=== PATIENT | male | born 2000 | race Caucasian/White ===

== ENCOUNTER 2023-04-23 12:31 | Inpatient (IN) ==
[2023-04-23 13:05] LABS: Hemoglobin 14.8 g/dl (14.0-18.0); Mean Corpuscular Hemoglobin 31.1 pg (25.0-34.0); Mean Corpuscular Hgb Conc 35.2 g/dL (32.0-36.0); Mean Corpuscular Volume 88.2 fL (80.0-100.0); Mean Platelet Volume 10.6 fL (9.4-12.4); Platelet Count 142 K/uL (130-400); RDW Coefficient of Variation 12.8 % (11.5-14.5); RDW Standard Deviation 41.3 fL (36.4-46.3); Red Blood Count 4.76 M/uL (4.70-6.10)
--- NOTE | 2023-04-23 13:09 | XRay Report ---
XR chest 1V not portable HISTORY: 22 years-old Male Chest pain, nonspecific COMPARISON: None TECHNIQUE: PA view of the chest FINDINGS: Cardiomediastinal and hilar silhouettes are within normal limits. No pneumothorax, pleural effusion o r airspace consolidation. The bones appear normal. IMPRESSION: No acute process. ACT 112: Negative or not required by law. The above report was generated using voice recognition software. It may contain grammatical, syntax o r spelling errors. Electronically signed by: Scot Loo M.D. 04/23/2023 1:07 PM
[2023-04-23 13:19] LABS: Albumin Globulin Ratio 1.6 (0.9-2); Albumin Level 4.5 gm/dl (3.4-5.0); Bilirubin,Total 1.3 mg/dl (0.2-1.0); Calcium 9.8 mg/dl (8.6-10.3); Creatinine Clr Calc Pharmacy 135.2 ml/min; Est GFR (African American) 115.2 ml/min; Est GFR (Non-African American) 99.4 ml/min; Globulin 2.8 gm/dl (2.5-4.0); Potassium 4.6 mmol/L (3.5-5.1); Total Protein 7.3 gm/dl (6.0-8.3)
[2023-04-23 13:21] LABS: Basophils # (auto) 0.03 K/uL (0.00-0.20); Basophils % (auto) 0.5 %; Eosinophils # (auto) 0.02 K/uL (0.00-0.50); Eosinophils % (auto) 0.3 %; Immature Granulocytes # (auto) 0.02 K/uL (0.01-0.20); Immature Granulocytes % (auto) 0.3 %; Lymphocytes # (auto) 1.06 K/uL (1.20-3.40); Lymphocytes % (auto) 17.4 %; Monocytes # (auto) 0.75 K/uL (0.11-0.59); Monocytes % (auto) 12.3 %; Neutrophils # (auto) 4.22 K/uL (1.40-6.50); Neutrophils % (auto) 69.2 %; RBC Morphology Unremarkable
[2023-04-23] MEDS ORDERED: ASPIRIN CHEW 324 MG PO STA (13:38)
[2023-04-23 13:42] LABS: D Dimer < 190 ug/L FEU (0-500); INR 1.1 (0.9-1.1); Partial Thromboplastin Ratio 1.1; Partial Thromboplastin Time 30.3 Seconds (21.0-31.0); Prothrombin Time 12.2 Seconds (9.0-12.0)
--- NOTE | 2023-04-23 13:44 | Emergency Department Note ---
Impression & Plan Chest pain, Non-ST elevation NC (NSTEMI), Myocarditis ED Provider Note HISTORY OF PRESENT ILLNESS: Patient is a 22-year-old male presenting with chest pain. Patient reports he awoke this morning with substernal chest pain. Describes it as a pressure and constant sensation. Denies any shortness of breath. Denies any nausea or vomiting. Denies any recent fevers or cough. Denies any DVT or PE history. He is not on any medications daily. Denies any family history of heart disease. He went to urgent care for his chest pain and had an EKG done which he states that they compared to an EKG in June 2022 and there were "a lot of changes so they sent me here." He is still complaining of some chest pain at this time, but reports is improved from earlier today ROS: as above PHYSICAL EXAM: Constitutional: Patient appears in no acute distress. HENT: Head: Normocephalic and atraumatic. Eyes: EOMI, PERRL Mouth/Throat: Mucous membranes moist. Neck: Trachea midline. Neck supple. Cardiovascular: RRR, No murmurs, rubs or gallops. Intact distal pulses. Pulmonary/Chest: No respiratory distress. Breath sounds clear and equal bilaterally. No wheezes or rales. Abdominal: Abdomen soft, no tenderness, rebound or guarding. Musculoskeletal: No edema, tenderness or deformity noted. Skin: Warm and dry. No rash, erythema, pallor or cyanosis Psychiatric: Appropriate mood and affect for situation. Neurological: Alert and keenly responsive. CN II-XII grossly intact, moving all extremities equally and fully. MDM: - Vitals signs showed hypertension - History obtained via patient. Patient presents with chest pain. Patient reports he woke up this morning with substernal chest pain. Describes it as a continuous pressure sensation. Denies any shortness of breath. Denies any nausea, vomiting or fevers. Denies any DVT or PE history. He is not on any medications daily. Denies any family history of heart disease. He went to urgent care today for chest pain and had an EKG done which seemed abnormal from his previous so they sent him to the ER. Patient still complaining of some mild substernal chest pain, but reports is improved from earlier today. - Chronic conditions affecting care: none - Differential diagnoses include, but are not limited to: Acute coronary s yndrome; pulmonary embolism; dissection; tension pneumothorax; esophageal rupture; pneumonia - Order placed for continuous cardiac monitoring. At this time, monitor showed rate of 87 bpm with normal sinus rhythm, per my interpretation. - External medical records reviewed. - EKG reviewed by myself showed [] - Laboratory workup interpreted by myself showed normal WBC; stable electrolytes; elevated troponin (7017.2) - CXR negative for pneumonia. - Considered CT PE, but patient's dimer is WNL. - Patient given 324 mg Po aspirin and 30 mg IV toradol. - Given patient's symptoms and troponin elevation, concern for possible myocarditis vs pericarditis. - Discussed case with [facility] stain maker assistant plant control operator, Dr. Merlos. Recommended ECHO and toradol. - Discussion was had with social media strategist about patient's case and need for admission - Hospitalist consulted for admission - Patient admitted to [facility] Hospitalist service for further evaluation and management. ASSESSMENT AND PLAN: Diagnosis: chest pain; NSTEMI; myocarditis Plan: admit Past Med/Surg History Social History Smoking Status: Never smoker Tobacco Type: Cigarettes Preferred Language: Bengali Feels Safe at Home: Yes Allergies Allergies Allergy/AdvReac Type Severity Reaction Status Date / Time No Known Allergies Allergy Verified 10/22/22 01:27 Home Meds Home Medications Medication Instructions Recorded Confirmed No Known Home Medications 10/22/22 04/23/23 Results & Data (ED) Vital Signs Vital Signs - 24 hr 04/23/23 12:37 04/23/23 12:41 04/23/23 12:41 Temperature 36.5 C Temperature Source Temporal Artery Scan Pulse Rate 82 Pulse Rate [Apical] 87 Pulse Rate from SpO2 Sensor Respiratory Rate 20 16 Respiratory Effort / Characteristics Non-Labored Respiratory Depth Normal Blood Pressure 147/100 H Blood Pressure [Right Arm] 147/93 H Blood Pressure Mean 115 Blood Pressure Mean [Right Arm] 111 Pulse Oximetry 98 97 98 Oxygen Delivery Method Room Air Sepsis Recent Fever Within 48 Hours No Sepsis New/Unexplained Change in Mental Status N/A Sepsis Action Taken by Nursing No Action Required 04/23/23 13:40 04/23/23 13:50 04/23/23 13:55 Temperature Temperature Source Pulse Rate 87 99 H Pulse Rate [Apical] Pulse Rate from SpO2 Sensor 83 102 H Respiratory Rate 22 17 Respiratory Effort / Characteristics Respiratory Depth Blood Pressure 155/82 H Blood Pressure [Right Arm] Blood Pressure Mean 134 Blood Pressure Mean [Right Arm] Pulse Oximetry 99 99 Oxygen Delivery Method Sepsis Recent Fever Within 48 Hours Sepsis New/Unexplained Change in Mental Status Sepsis Action Taken by Nursing 04/23/23 13:55 04/23/23 14:00 04/23/23 14:00 Temperature Temperature Source Pulse Rate 92 H 95 H Pulse Rate [Apical] Pulse Rate from SpO2 Sensor 87 90 Respiratory Rate 17 22 Respiratory Effort / Characteristics Respiratory Depth Blood Pressure 138/68 Blood Pressure [Right Arm] Blood Pressure Mean 96 Blood Pressure Mean [Right Arm] Pulse Oximetry 98 98 Oxygen Delivery Method Sepsis Recent Fever Within 48 Hours Sepsis New/Unexplained Change in Mental Status Sepsis Action Taken by Nursing 04/23/23 14:10 04/23/23 14:20 04/23/23 14:27 Temperature Temperature Source Pulse Rate 98 H 84 87 Pulse Rate [Apical] Pulse Rate from SpO2 Sensor 98 H 84 Respiratory Rate 20 23 Respiratory Effort / Characteristics Respiratory Depth Blood Pressure Blood Pressure [Right Arm] Blood Pressure Mean Blood Pressure Mean [Right Arm] Pulse Oximetry 100 98 Oxygen Delivery Method Sepsis Recent Fever Within 48 Hours Sepsis New/Unexplained Change in Mental Status Sepsis Action Taken by Nursing 04/23/23 14:30 04/23/23 14:30 Temperature Temperature Source Pulse Rate 90 Pulse Rate [Apical] Pulse Rate from SpO2 Sensor 85 Respiratory Rate 24 Respiratory Effort / Characteristics Respiratory Depth Blood Pressure 144/72 H Blood Pressure [Right Arm] Blood Pressure Mean 88 Blood Pressure Mean [Right Arm] Pulse Oximetry 99 Oxygen Delivery Method Sepsis Recent Fever Within 48 Hours Sepsis New/Unexplained Change in Mental Status Sepsis Action Taken by Nursing Laboratory Data 04/23/23 12:46 04/23/23 12:46 Lab Results 04/23/23 04/23/23 04/23/23 Range/Units 12:46 12:46 12:46 WBC 6.10 (4.8-10.8) K/ul RBC 4.76 (4.70-6.10) M/uL Hgb 14.8 (14.0-18.0) g/dl Hct 42.0 (42.0-52.0) % MCV 88.2 (80.0-100.0) fL MCH 31.1 (25.0-34.0) pg MCHC 35.2 (32.0-36.0) g/dL RDW Std Deviation 41.3 (36.4-46.3) fL RDW Coeff of Padmini 12.8 (11.5-14.5) % Plt Count 142 (130-400) K/uL MPV 10.6 (9.4-12.4) fL Immature Gran % (Auto) 0.3 % Neut % (Auto) 69.2 % Lymph % (Auto) 17.4 % [place] % (Auto) 12.3 % Eos % (Auto) 0.3 % Baso % (Auto) 0.5 % Neut # (Auto) 4.22 (1.40-6.50) K/uL Lymph # (Auto) 1.06 L (1.20-3.40) K/uL [place] # (Auto) 0.75 H (0.11-0.59) K/uL Eos # (Auto) 0.02 (0.00-0.50) K/uL Baso # (Auto) 0.03 (0.00-0.20) K/uL Immature Gran # (Auto) 0.02 (0.01-0.20) K/uL RBC Morphology Unremarkable PT 12.2 H (9.0-12.0) Seconds INR 1.1 (0.9-1.1) APTT 30.3 (21.0-31.0) Seconds PTT Ratio 1.1 D-Dimer < 190 (0-500) ug/L FEU Sodium 137 (136-145) mmol/L Potassium 4.6 (3.5-5.1) mmol/L Chloride 106 (98-107) mmol/L Carbon Dioxide 25 (21-32) mmol/L Anion Gap 6 (3-11) BUN 15 (6-23) mg/dl Creatinine 1.07 (0.6-1.4) mg/dl Est Cr Clr Drug Dosing 135.2 ml/min Est GFR ( Amer) 115.2 ml/min Est GFR (Non-Af Amer) 99.4 ml/min BUN/Creatinine Ratio 14.0 (10-20) Glucose 99 (70-99(Fasting)) mg/dl Calcium 9.8 (8.6-10.3) mg/dl Total Bilirubin 1.3 H (0.2-1.0) mg/dl AST 53 H (13-39) U/L ALT 25 (7-52) U/L Alkaline Phosphatase 47 (34-104) U/L Troponin I High Sens 7017.2 H* (0-20) pg/ml B-Natriuretic Peptide (0-100) pg/ml Total Protein 7.3 (6.0-8.3) gm/dl Albumin 4.5 (3.4-5.0) gm/dl Globulin 2.8 (2.5-4.0) gm/dl Albumin/Globulin Ratio 1.6 (0.9-2) Lyme Disease IgG Ab (Negative) Lyme Disease IgM Ab (Negative) 04/23/23 04/23/23 Range/Units 12:50 14:30 WBC (4.8-10.8) K/ul RBC (4.70-6.10) M/uL Hgb (14.0-18.0) g/dl Hct (42.0-52.0) % MCV (80.0-100.0) fL MCH (25.0-34.0) pg MCHC (32.0-36.0) g/dL RDW Std Deviation (36.4-46.3) fL RDW Coeff of Padmini (11.5-14.5) % Plt Count (130-400) K/uL MPV (9.4-12.4) fL Immature Gran % (Auto) % Neut % (Auto) % Lymph % (Auto) % [place] % (Auto) % Eos % (Auto) % Baso % (Auto) % Neut # (Auto) (1.40-6.50) K/uL Lymph # (Auto) (1.20-3.40) K/uL [place] # (Auto) (0.11-0.59) K/uL Eos # (Auto) (0.00-0.50) K/uL Baso # (Auto) (0.00-0.20) K/uL Immature Gran # (Auto) (0.01-0.20) K/uL RBC Morphology PT (9.0-12.0) Seconds INR (0.9-1.1) APTT (21.0-31.0) Seconds PTT Ratio D-Dimer (0-500) ug/L FEU Sodium (136-145) mmol/L Potassium (3.5-5.1) mmol/L Chloride (98-107) mmol/L Carbon Dioxide (21-32) mmol/L Anion Gap (3-11) BUN (6-23) mg/dl Creatinine (0.6-1.4) mg/dl Est Cr Clr Drug Dosing ml/min Est GFR ( Amer) ml/min Est GFR (Non-Af Amer) ml/min BUN/Creatinine Ratio (10-20) Glucose (70-99(Fasting)) mg/dl Calcium (8.6-10.3) mg/dl Total Bilirubin (0.2-1.0) mg/dl AST (13-39) U/L ALT (7-52) U/L Alkaline Phosphatase (34-104) U/L Troponin I High Sens (0-20) pg/ml B-Natriuretic Peptide 50 (0-100) pg/ml Total Protein (6.0-8.3) gm/dl Albumin (3.4-5.0) gm/dl Globulin (2.5-4.0) gm/dl Albumin/Globulin Ratio (0.9-2) Lyme Disease IgG Ab Negative (Negative) Lyme Disease IgM Ab Negative (Negative) Administered Medications Discontinued Medications Aspirin (Aspirin Chew 324 Mg) 324 mg PO NOW STA Stop: 04/23/23 13:39 Last Admin: 04/23/23 13:53 Dose: 324 mg Documented By: ACC Ketorolac Tromethamine (Ketorolac 30 Mg/Ml Vial) 30 mg IV NOW ONE Stop: 04/23/23 14:26 Last Admin: 04/23/23 14:34 Dose: 30 mg Documented By: ACC Imaging Data Radiologist's Impression: Chest X-Ray 04/23/23 12:41 XR chest 1V not portable HISTORY: 22 years-old Male Chest pain, nonspecific COMPARISON: None TECHNIQUE: PA view of the chest FINDINGS: Cardiomediastinal and hilar silhouettes are within normal limits. No pneumothorax, pleural effusion or airspace consolidation. The bones appear normal. IMPRESSION: No acute process. ACT 112: Negative or not required by law. The above report was generated using voice recognition software. It may contain grammatical, syntax or spelling errors. Electronically signed by: Scot Loo M.D. 04/23/2023 1:07 PM Discharge Plan Visit Data Chief Complaint: Abnormal Labs/Diagnostic Testing Stated Complaint: CHEST PAIN,ABNORMAL EKG, REFERRED FROM URGENT CARE ED Provider: Jossy Godinez Discharge Problem: Chest pain, Non-ST elevation NC (NSTEMI), Myocarditis Forms Stand Alone Forms: Prosodic Prescriptions Prescriptions: No Action No Known Home Medications Referrals Referrals: [facility] [Primary Care Provider] -
[2023-04-23] MEDS ORDERED: KETOROLAC 30 MG/ML VIAL IV ONE (14:25)
[2023-04-23 14:44] LABS: Lyme Ab IgG w/WB Rflx Negative (Negative); Lyme Ab IgM w/WB Rflx Negative (Negative)
--- NOTE | 2023-04-23 14:50 | History & Physical Report ---
Date of Service April 23, 2023 Assessment & Plan (1) Chest pain: Plan: Substernal CP w/o radiation and mild SOB x2 days Started 04/21 Patient got EKG done at on Monday 04/23 and was told to come in; "early repolarization" changes seen on EKG when compared to EKG done June 2022; EKGs attached to paper chart Patient had similar symptoms back in Jun 2022 EKG on arrival showed NSR ASA & Toradol were given in the ED Troponin positive x2 (7017.2 --> 8387.3) Trend troponin q6h x 3 CXR NAF D-dimer WNL BNP WNL at 50 Lyme negative BioFire negative Stat TTE ordered, pending Continous telemonitoring EKG as need for chest pain Appreciate cardio consult Depending on echo results, will place patient on colchicine 0.6 mg twice daily Nitroglycerin 0.4 mg SL as needed for intractable angina (max 3 doses q5min over 15min) A.m. CBC, BMP, Mag Plan Disposition: Admit to 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 He presents for intermittent chest pain since 04/21. He had an EKG done at [facility] urgent care this morning 04/23, and was instructed to go to the ED based on changes when compared to an EKG done in June 2022. Patient was having similar chest pain symptoms in June 2022. Patient is not taking daily medications. Substernal CP without radiation; patient has not been taking medication for it. He reports that anxiety exacerbates the pain. He says it is not alleviated by different positions, such as sitting forward. He describes it as intermittent "chest pressure" that can last for several hours at a time. He also endorses mild pleuritic CP and SOB. Patient normally exercises 4-5x per week; weight lifting. He endorses periodic alcohol consumption. No recent vomiting. No history of GERD per patient. Patient denies smoking, vaping, tobacco use, or recreational drug use. No sick contacts. No PMHx of MT, DVT/PE, HLD, or diabetes. He was once told by PCP that he had high blood pressure. Mild hypertension at 144/72 on admission; vitals otherwise stable. ED course: Aspirin 324 mg, Toradol 30 mg IV ROS: Patient endorses intermittent substernal CP, pleuritic CP, mild SOB at rest, and sweating. Patient denies fevers, chills, CHAMBERS, dizziness, lightheadedness, cough, hemo ptysis, SOB, CP radiating to the back, back/scapular pain, abdominal pain, N/V/D, urinary symptoms, burning with urination, numbness/pain in the left arm or shoulder, or numbness or tingling down the legs. Fam hx: No family history of sudden cardiac , MT, or DVT/PE to his knowledge Allergies Allergy/AdvReac Type Severity Reaction Status Date / Time No Known Allergies Allergy Verified 10/22/22 01:27 Home Medications Medication Instructions Recorded Confirmed Type No Known Home Medications 10/22/22 04/23/23 History Past Med/Surg History Social History Smoking Status: Never smoker Tobacco Type: Cigarettes Preferred Language: Turkmen Feels Safe at Home: Yes Review of Systems Review of Systems: See HPI above Physical Exam Physical Exam: General: no acute distress; patient appears mildly anxious; diaphoretic; non- toxic appearing; well-nourished; cooperative HEENT: normocephalic, atraumatic; no scleral icterus; PERRLA w/ EOMs intact; moist mucus membrane; vision and hearing grossly intact Neck: supple; no lymphadenopathy; trachea midline Skin: warm, moist without signs of tenting; no cyanosis; no rashes, brusing, lesions, or erythema noted CV: chest wall NTP; RRR; S1/S2 normal; no murmurs/rubs/gallops; pulses intact and symmetric at radial, DP, and PT Lungs: no acute respiratory distress; symmetrical chest wall expansion; clear breath sounds across all lung moss w/o adventitious sounds; no wheezing ABD: Soft, NTP; BS present; no distention; negative CVA tenderness MSK: no tics or fasciculations; no edema noted in the LEs b/l Neuro: A&Ox3; normal mood and affect; fluent speech; no focal deficits; sensation grossly intact Results & Data Results & Data Vital Signs (Past 12 Hours) Vital Signs Temp Pulse Pulse Resp BP BP Pulse Ox 04/23/23 14:30 90 24 99 04/23/23 14:30 144/72 H 04/23/23 14:27 87 04/23/23 14:20 84 23 98 04/23/23 14:10 98 H 20 100 04/23/23 14:00 95 H 22 98 04/23/23 14:00 138/68 04/23/23 13:55 92 H 17 98 04/23/23 13:55 155/82 H 04/23/23 13:50 99 H 17 99 04/23/23 13:40 87 22 99 04/23/23 12:41 98 04/23/23 12:41 87 16 147/93 H 97 04/23/23 12:37 36.5 C 82 20 147/100 H 98 O2 Del Method 04/23/23 14:30 04/23/23 14:30 04/23/23 14:27 04/23/23 14:20 04/23/23 14:10 04/23/23 14:00 04/23/23 14:00 04/23/23 13:55 04/23/23 13:55 04/23/23 13:50 04/23/23 13:40 04/23/23 12:41 Room Air 04/23/23 12:41 04/23/23 12:37 Laboratory Results Abnormal lab results 04/23/23 04/23/23 04/23/23 Range/Units 12:46 12:46 12:46 Lymph # (Auto) 1.06 L (1.20-3.40) K/uL [place] # (Auto) 0.75 H (0.11-0.59) K/uL PT 12.2 H (9.0-12.0) Seconds Total Bilirubin 1.3 H (0.2-1.0) mg/dl AST 53 H (13-39) U/L Troponin I High Sens 7017.2 H* (0-20) pg/ml Diagnostic Findings Chest X-Ray 04/23/23 12:41 XR chest 1V not portable HISTORY: 22 years-old Male Chest pain, nonspecific COMPARISON: None TECHNIQUE: PA view of the chest FINDINGS: Cardiomediastinal and hilar silhouettes are within normal limits. No pneumothorax, pleural effusion or airspace consolidation. The bones appear normal. IMPRESSION: No acute process. ACT 112: Negative or not required by law. The above report was generated using voice recognition software. It may contain grammatical, syntax or spelling errors. Electronically signed by: Scot Loo M.D. 04/23/2023 1:07 PM Code Status & VTE Plan Code Status Full code VTE Prophylaxis Plan VTE Prophylaxis will be ordered: Yes Supervising Physician Co-Signing Physician Notes Patient seen and examined, chart reviewed, case discussed with Avi Humphries PA-C and I agree with the assessment and plan as above except as otherwise noted Labs and images reviewed Substernal CP and SOB x2-3 days. Similar symptoms in 2022. EKG initially consistent with early repolarization. Troponin uptrending 7000 --> 8k in ER. CXR wnl, DD normal, BNP wnl. ?myocarditis. Lyme negative. Cardiology consulted. Case was reviewed w/ Dr. Merlos. toradol 10mg q6h for pain. Trend trops, echo pending. At bedside patient reports his pain is greatly improved and nearly completely resolved following Toradol. He notes that his symptoms began 2 days ago, he reports he did go out drinking last night and had ~6 beers but his chest pain onset preceded this by about a day and he does not think the beers affected his pain. He has not had fever, chills, sweats. Denies rashes/tick bites. Denies cough. Denies pain between his shoulder blades he reports his pain has mostly been in the right side of his chest, her a little more with deep breathing and he notes that sitting slightly up causes his pain to be worse but either flexing his shoulders forward or sitting very far forward does seem to help improve his pain. He feels 90% improved at time of hospitalist evaluation. Lungs are clear on auscultation, heart rate is regular without murmurs or gallops. do not feel this represents ACS, suspect mycarditis/pericarditis. Heparinization not indicated. If toradol/tylenol as needed for pain control. Echo pending, if wall motion is normal will add colchicine 0.5 mg twice daily. Agree with assessment and work-up above. PG Care Time/CCT Total # of Minutes Spent Total Time Spent with Patient: Total time spent is greater than 50% in coordination of care (as documented) at patient's floor/unit and/or counseling patient: [place] [address] INT INP/OBS CARE MIN Patient Type Established History Comprehensive Exam Comprehensive Medical Decision Making High Complexity Diagnoses Chest pain R07.9
[2023-04-23 15:31] LABS: Adenovirus PCR Not Detected (NotDetected); Bordetella parapertussis PCR Not Detected (NotDetected); Bordetella pertussis PCR Not Detected (NotDetected); Chlamydia pneumoniae PCR Not Detected (NotDetected); Coronavirus 229E PCR Not Detected (NotDetected); Coronavirus CoV-2 (COVID19)PCR Not Detected (NotDetected); Coronavirus HKU1 PCR Not Detected (NotDetected); Coronavirus NL63 PCR Not Detected (NotDetected); Coronavirus OC43PCR Not Detected (NotDetected); Human Metapneumovirus PCR Not Detected (NotDetected); Influenza A PCR Not Detected (NotDetected); Influenza B PCR Not Detected (NotDetected); Mycoplasma pneumoniae PCR Not Detected (NotDetected); Parainfluenza Virus 1 PCR Not Detected (NotDetected); Parainfluenza Virus 2 PCR Not Detected (NotDetected); Parainfluenza Virus 3 PCR Not Detected (NotDetected); Parainfluenza Virus 4 PCR Not Detected (NotDetected); Respiratory Syncytial VirusPCR Not Detected (NotDetected); Rhinovirus/Enterovirus PCR Not Detected (NotDetected)
--- NOTE | 2023-04-23 17:08 | XCELERA ---
[id number]
[2023-04-23 18:20] LABS: Magnesium 1.9 mg/dl (1.7-2.4)
[2023-04-23] MEDS ORDERED: ACETAMINOPHEN 325 MG TAB PO PRN (19:14)
[2023-04-23] MEDS ORDERED: ENOXAPARIN INJ 40 MG/0.4 ML SYR SQ SCH (20:00)
[2023-04-23] MEDS: COLCHICINE 0.6 MG TAB PO SCH ×2 (20:39→22:02)
[2023-04-23] MEDS ORDERED: IBUPROFEN 600 MG TAB PO ONE (20:45)
[2023-04-23] MEDS: NITROGLYCERIN SL 0.4 MG/TAB TAB SL PRN ×2 (22:36→22:57)
[2023-04-23] MEDS ORDERED: MELATONIN 3 MG TAB PO STA (23:01)
[2023-04-24 06:34] LABS: Hematocrit (blood only) 42.6 % (42.0-52.0); Hemoglobin 14.7 g/dl (14.0-18.0); Mean Corpuscular Hemoglobin 30.6 pg (25.0-34.0); Mean Corpuscular Hgb Conc 34.5 g/dL (32.0-36.0); Mean Corpuscular Volume 88.6 fL (80.0-100.0); Mean Platelet Volume 10.7 fL (9.4-12.4); Platelet Count 143 K/uL (130-400); RDW Coefficient of Variation 12.9 % (11.5-14.5); RDW Standard Deviation 41.6 fL (36.4-46.3); Red Blood Count 4.81 M/uL (4.70-6.10); White Blood Count 5.85 K/ul (4.8-10.8)
[2023-04-24 07:00] LABS: Calcium 9.5 mg/dl (8.6-10.3); Est GFR (Non-African American) 107.9 ml/min; Potassium 4.3 mmol/L (3.5-5.1)
[2023-04-24 07:18] LABS: Basophils # (auto) 0.06 K/uL (0.00-0.20); Eosinophils # (auto) 0.08 K/uL (0.00-0.50); Eosinophils % (auto) 1.4 %; Immature Granulocytes # (auto) 0.02 K/uL (0.01-0.20); Immature Granulocytes % (auto) 0.3 %; Lymphocytes # (auto) 1.81 K/uL (1.20-3.40); Lymphocytes % (auto) 30.9 %; Monocytes # (auto) 0.78 K/uL (0.11-0.59); Monocytes % (auto) 13.3 %; Neutrophils % (auto) 53.1 %
--- NOTE | 2023-04-24 08:16 | Hospitalist Progress Note ---
Date of Service April 24, 2023 Assessment & Plan (1) Chest pain: Plan: acute symptomatic myocarditis, normal echo started on colchicine, symptom improvement EKG on arrival showed NSR ASA & Toradol were given in the ED Troponin positive up to 10,000 Echo without RWMA D-dimer WNL, Lyme negative, BioFire negative Plan Full code VTE PPx: Lovenox Admission and Anticipated Discharge Date Admission Date: April 23, 2023 Results & Data Results & Data Vital Signs (Past 12 Hours) Vital Signs Temp Pulse Pulse Resp BP Pulse Ox O2 Del Method 04/24/23 07:21 67 04/24/23 06:57 97.9 F 83 20 118/80 97 Room Air 04/24/23 03:13 98.1 F 83 20 128/84 96 Room Air 04/23/23 22:30 90 04/23/23 23:00 Room Air 04/23/23 23:00 98.6 F 83 18 148/93 H 100 Room Air 04/23/23 22:55 72 147/97 H 99 Room Air 04/23/23 22:34 98.6 F 83 18 148/93 H 100 Room Air PG Care Time/CCT Total # of Minutes Spent Total Time Spent with Patient: Total time spent is greater than 50% in coordination of care (as documented) at patient's floor/unit and/or counseling patient: Coding Diagnoses Chest pain R07.9
[2023-04-24] MEDS: COLCHICINE 0.6 MG TAB PO SCH (08:18)
--- NOTE | 2023-04-24 11:18 | Cardiology Consultation ---
Date of Consultation April 24, 2023 Assessment & Plan (1) Myopericarditis: Plan 1. Mild pericarditis: He has significantly elevated biomarkers without evidence of LV dysfunction or regional wall motion abnormalities. EKG is also consistent with a pericarditis in some features of his illness are consistent with pericardial inflammation such as the pleuritic component. He is not in a demographic likely to have an acute coronary syndrome. No recent vaccinations or obvious viral illnesses. Viral panel including COVID-19 were negative. I think we will proceed us if this represents a typical mild pericarditis with nonsteroidal medications and colchicine. Provided he is symptom free and the biomarkers are trending down words he could be safely discharged with an activity restriction and continued medical therapy. We will repeat an echocardiogram in approximately 2 weeks to re-evaluate LV function. History of Present Illness Reason for Consultation: Chest pain Requesting Physician: Gretchen Attending Physician: Adrien Shankar MD History of Present Illness The patient is a 22-year-old gentleman without a known history of cardiac disease who presented to an urgent care for symptoms of chest discomfort. The patient states that approximately 2 days prior to presentation he began to experience symptoms of substernal chest discomfort. This was initially mild in intensity and did resolve over time, but was intermittently recurrent over the subsequent 2 days. The day of evaluation the symptoms were persistent and somewhat more significant. He did report a pleuritic component with the discomfort. There did not appear to be a positional component. Did not appear to be worse with any specific activity and was present even at rest. The episodes themselves could last several hours. He recalls having had similar symptoms several months ago for which he was evaluated at urgent care. Those symptoms resolved without any particular intervention. In general he is an active individual who exercises by lifting weights. He is ambulatory and can perform other physical activity without symptom in general. He denies any sick contacts or recent upper respiratory symptoms. No recent fevers or chills. No joint pains or unusual rashes. No recent vaccinations. No breathing difficulty. At the time of the interview the patient was feeling well. He did report having some recurrent chest discomfort last evening, but this resolved and has not come back. He has been ambulatory to the bathroom without dizziness or chest pain. No breathing difficulty orthopnea. Allergies Allergy/AdvReac Type Severity Reaction Status Date / Time No Known Allergies Allergy Verified 10/22/22 01:27 Home Medications Medication Instructions Recorded Confirmed Type No Known Home Medications 10/22/22 04/23/23 History Patient History Social History Smoking Status: Never smoker Tobacco Type: Cigarettes Second Hand Exposure: No; Do You Dip or Chew Tobacco: No; Hx Alcohol Use: Yes Alcohol type: beer Hx Substance Use: No Preferred Language: British Communication Ability: Effective [place] Required: No Beliefs That Will Affect Care: None Current Living Situation: Other Current Living Situation Comment: [employer] student. lives off campus Feels Safe at Home: Yes Assistive Devices: None Review of Systems Review of Systems: Per HPI. Physical Exam Physical Exam: The patient is alert and oriented. Mood and affect appeared normal. He answered all questions appropriately. HEENT: Pupils are equal and reactive to light and accommodation. Extraocular movements are intact. The sclerae are anicteric. Neuro: Cranial nerves intact Lungs: Clear to auscultation bilaterally. He has good air movement without use of accessory muscles. No rales wheezes or rhonchi. Cardiac: Heart demonstrates a regular rate and rhythm. Normal S1 and S2. No murmurs on examination. Pulses: The patient has palpable radial pulses bilaterally that are equal in intensity Extremities: There was no evidence of hypoperfusion. There is no cyanosis or clubbing. There is no edema. Skin: I did not appreciate any rashes on examination today. Results & Data Vital Signs (Past 12 Hours) Vital Signs Temp Pulse Pulse Resp BP Pulse Ox O2 Del Method 04/24/23 11:00 36.4 C L 85 20 127/80 98 Room Air 04/24/23 07:21 67 04/24/23 06:57 36.6 C 83 20 118/80 97 Room Air 04/24/23 03:13 36.7 C 83 20 128/84 96 Room Air Laboratory Results Abnormal Lab Results 04/23/23 04/23/23 04/23/23 12:46 12:46 12:46 WBC 6.10 RBC 4.76 Hgb 14.8 Hct 42.0 MCV 88.2 MCH 31.1 MCHC 35.2 RDW Std Deviation 41.3 RDW Coeff of Padmini 12.8 Plt Count 142 MPV 10.6 Immature Gran % (Auto) 0.3 Neut % (Auto) 69.2 Lymph % (Auto) 17.4 [place] % (Auto) 12.3 Eos % (Auto) 0.3 Baso % (Auto) 0.5 Neut # (Auto) 4.22 Lymph # (Auto) 1.06 L [place] # (Auto) 0.75 H Eos # (Auto) 0.02 Baso # (Auto) 0.03 Immature Gran # (Auto) 0.02 RBC Morphology Unremarkable PT 12.2 H INR 1.1 APTT 30.3 PTT Ratio 1.1 D-Dimer < 190 Sodium 137 Potassium 4.6 Chloride 106 Carbon Dioxide 25 Anion Gap 6 BUN 15 Creatinine 1.07 Est Cr Clr Drug Dosing 135.2 Est GFR ( Amer) 115.2 Est GFR (Non-Af Amer) 99.4 BUN/Creatinine Ratio 14.0 Glucose 99 Calcium 9.8 Magnesium Total Bilirubin 1.3 H AST 53 H ALT 25 Alkaline Phosphatase 47 Troponin I High Sens 7017.2 H* B-Natriuretic Peptide Total Protein 7.3 Albumin 4.5 Globulin 2.8 Albumin/Globulin Ratio 1.6 Adenovirus (PCR) B. pertussis DNA (PCR) B.parapertussis DNA PCR Lyme Disease IgG Ab Lyme Disease IgM Ab C. pneumoniae DNA (PCR) Coronavirus OC43 (PCR) Coronavirus HKU1 (PCR) Coronavirus 229E (PCR) SARS-CoV-2 (PCR) Coronavirus NL63 (PCR) Human Metapneumovir PCR Influenza Type A (PCR) Influenza Type B (PCR) M. pneumoniae (PCR) Parainfluenza 1 (PCR) Parainfluenza 2 (PCR) Parainfluenza 3 (PCR) Parainfluenza 4 (PCR) RSV (PCR) Entero/Rhino (PCR) 04/23/23 04/23/23 04/23/23 12:50 14:30 14:30 WBC RBC Hgb Hct MCV MCH MCHC RDW Std Deviation RDW Coeff of Padmini Plt Count MPV Immature Gran % (Auto) Neut % (Auto) Lymph % (Auto) [place] % (Auto) Eos % (Auto) Baso % (Auto) Neut # (Auto) Lymph # (Auto) [place] # (Auto) Eos # (Auto) Baso # (Auto) Immature Gran # (Auto) RBC Morphology PT INR APTT PTT Ratio D-Dimer Sodium Potassium Chloride Carbon Dioxide Anion Gap BUN Creatinine Est Cr Clr Drug Dosing Est GFR ( Amer) Est GFR (Non-Af Amer) BUN/Creatinine Ratio Glucose Calcium Magnesium Total Bilirubin AST ALT Alkaline Phosphatase Troponin I High Sens B-Natriuretic Peptide 50 Total Protein Albumin Globulin Albumin/Globulin Ratio Adenovirus (PCR) Not Detected B. pertussis DNA (PCR) Not Detected B.parapertussis DNA PCR Not Detected Lyme Disease IgG Ab Negative Lyme Disease IgM Ab Negative C. pneumoniae DNA (PCR) Not Detected Coronavirus OC43 (PCR) Not Detected Coronavirus HKU1 (PCR) Not Detected Coronavirus 229E (PCR) Not Detected SARS-CoV-2 (PCR) Not Detected Coronavirus NL63 (PCR) Not Detected Human Metapneumovir PCR Not Detected Influenza Type A (PCR) Not Detected Influenza Type B (PCR) Not Detected M. pneumoniae (PCR) Not Detected Parainfluenza 1 (PCR) Not Detected Parainfluenza 2 (PCR) Not Detected Parainfluenza 3 (PCR) Not Detected Parainfluenza 4 (PCR) Not Detected RSV (PCR) Not Detected Entero/Rhino (PCR) Not Detected 04/23/23 04/23/23 04/23/23 14:39 17:47 23:01 WBC RBC Hgb Hct MCV MCH MCHC RDW Std Deviation RDW Coeff of Padmini Plt Count MPV Immature Gran % (Auto) Neut % (Auto) Lymph % (Auto) [place] % (Auto) Eos % (Auto) Baso % (Auto) Neut # (Auto) Lymph # (Auto) [place] # (Auto) Eos # (Auto) Baso # (Auto) Immature Gran # (Auto) RBC Morphology PT INR APTT PTT Ratio D-Dimer Sodium Potassium Chloride Carbon Dioxide Anion Gap BUN Creatinine Est Cr Clr Drug Dosing Est GFR ( Amer) Est GFR (Non-Af Amer) BUN/Creatinine Ratio Glucose Calcium Magnesium 1.9 Total Bilirubin AST ALT Alkaline Phosphatase Troponin I High Sens 8387.3 H* 8642.2 H* 7894.2 H* B-Natriuretic Peptide Total Protein Albumin Globulin Albumin/Globulin Ratio Adenovirus (PCR) B. pertussis DNA (PCR) B.parapertussis DNA PCR Lyme Disease IgG Ab Lyme Disease IgM Ab C. pneumoniae DNA (PCR) Coronavirus OC43 (PCR) Coronavirus HKU1 (PCR) Coronavirus 229E (PCR) SARS-CoV-2 (PCR) Coronavirus NL63 (PCR) Human Metapneumovir PCR Influenza Type A (PCR) Influenza Type B (PCR) M. pneumoniae (PCR) Parainfluenza 1 (PCR) Parainfluenza 2 (PCR) Parainfluenza 3 (PCR) Parainfluenza 4 (PCR) RSV (PCR) Entero/Rhino (PCR) 04/24/23 04/24/23 06:18 06:18 WBC 5.85 RBC 4.81 Hgb 14.7 Hct 42.6 MCV 88.6 MCH 30.6 MCHC 34.5 RDW Std Deviation 41.6 RDW Coeff of Padmini 12.9 Plt Count 143 MPV 10.7 Immature Gran % (Auto) 0.3 Neut % (Auto) 53.1 Lymph % (Auto) 30.9 [place] % (Auto) 13.3 Eos % (Auto) 1.4 Baso % (Auto) 1.0 Neut # (Auto) 3.10 Lymph # (Auto) 1.81 [place] # (Auto) 0.78 H Eos # (Auto) 0.08 Baso # (Auto) 0.06 Immature Gran # (Auto) 0.02 RBC Morphology PT INR APTT PTT Ratio D-Dimer Sodium 138 Potassium 4.3 Chloride 106 Carbon Dioxide 26 Anion Gap 6 BUN 17 Creatinine 1.00 Est Cr Clr Drug Dosing 144.0 Est GFR ( Amer) 125.0 Est GFR (Non-Af Amer) 107.9 BUN/Creatinine Ratio 17.0 Glucose 98 Calcium 9.5 Magnesium 2.0 Total Bilirubin AST ALT Alkaline Phosphatase Troponin I High Sens 38989.4 H* D B-Natriuretic Peptide Total Protein Albumin Globulin Albumin/Globulin Ratio Adenovirus (PCR) B. pertussis DNA (PCR) B.parapertussis DNA PCR Lyme Disease IgG Ab Lyme Disease IgM Ab C. pneumoniae DNA (PCR) Coronavirus OC43 (PCR) Coronavirus HKU1 (PCR) Coronavirus 229E (PCR) SARS-CoV-2 (PCR) Coronavirus NL63 (PCR) Human Metapneumovir PCR Influenza Type A (PCR) Influenza Type B (PCR) M. pneumoniae (PCR) Parainfluenza 1 (PCR) Parainfluenza 2 (PCR) Parainfluenza 3 (PCR) Parainfluenza 4 (PCR) RSV (PCR) Entero/Rhino (PCR) Diagnostic Findings Echocardiogram performed 04/23/2023: Normal LV systolic function with ejection fraction of 60 65%. Normal wall motion. No significant valvular heart disease. On 04/23/2023: No acute cardiopulmonary process PG Care Time/CCT Total # of Minutes Spent Total Time Spent with Patient: Total time spent is greater than 50% in coordination of care (as documented) at patient's floor/unit and/or counseling patient: Coding Level of Care Code 70423 IN/OBS CONSULT LVL 4,60M Diagnoses Myopericarditis I31.9
--- NOTE | 2023-04-24 13:03 | Electrocardiogram Report ---
Test Reason : Blood Pressure : / mmHG Vent. Rate : 076 BPM Atrial Rate : 076 BPM P-R Int : 132 ms QRS Dur : 090 ms QT Int : 362 ms P-R-T Axes : 038 073 051 degrees QTc Int : 407 ms Normal sinus rhythm Early repolarization No previous ECGs available Confirmed by Malik Merlos ([id number]) on 04/24/2023 1:03:14 PM Referred By: Confirmed By:Paul Merlos
--- NOTE | 2023-04-24 13:11 | Electrocardiogram Report ---
Test Reason : Blood Pressure : / mmHG Vent. Rate : 083 BPM Atrial Rate : 083 BPM P-R Int : 146 ms QRS Dur : 092 ms QT Int : 352 ms P-R-T Axes : 063 056 039 degrees QTc Int : 413 ms Normal sinus rhythm with sinus arrhythmia Normal ECG When compared with ECG of 23-APR-2023 12:44, (unconfirmed) No significant change was found Confirmed by Malik Merlos ([id number]) on 04/24/2023 1:11:35 PM Referred By: Provider Outside Confirmed By:Paul Merlos
--- NOTE | 2023-04-24 13:18 | Electrocardiogram Report ---
Test Reason : Blood Pressure : / mmHG Vent. Rate : 089 BPM Atrial Rate : 089 BPM P-R Int : 150 ms QRS Dur : 086 ms QT Int : 350 ms P-R-T Axes : 065 073 030 degrees QTc Int : 425 ms Normal sinus rhythm ST elevation, consider early repolarization, pericarditis, or injury Normal ECG When compared with ECG of 23-APR-2023 18:58, (unconfirmed) ST elevation now present in Anterior leads Confirmed by Malik Merlos ([id number]) on 04/24/2023 1:17:49 PM Referred By: Provider Outside Confirmed By:Paul Merlos
--- NOTE | 2023-04-24 15:52 | Discharge Summary ---
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 He presents for intermittent chest pain since Monday morning 04/21. He had an EKG done at [facility] this morning 04/23, and was instructed to go to the ED based on changes when compared to an EKG done in June 2022. Patient was having similar chest pain symptoms in June 2022. Patient is not taking daily medications. Substernal CP without radiation; patient has not been taking medication for it. He reports that anxiety exacerbates the pain. He says it is not alleviated by different positions, such as sitting forward. He describes it as intermittent "chest pressure" that can last for several hours at a time. He also endorses mild pleuritic CP and SOB. Patient normally exercises 4-5x per week; weight lifting. He endorses periodic alcohol consumption. No recent vomiting. No history of GERD per patient. Patient denies smoking, vaping, tobacco use, or recreational drug use. No sick contacts. No PMHx of MN, DVT/PE, HLD, or diabetes. He was once told by PCP that he had high blood pressure. Mild hypertension at 144/72 on admission; vitals otherwise stable. ED course: Aspirin 324 mg, Toradol 30 mg IV ROS: Patient endorses intermittent substernal CP, pleuritic CP, mild SOB at rest, and sweating. Patient denies fevers, chills, CHAMBERS, dizziness, lightheadedness, cough, hemoptysis, SOB, CP radiating to the back, back/scapular pain, abdominal pain, N/V/D, urinary symptoms, burning with urination, numbness/pain in the left arm or shoulder, or numbness or tingling down the legs. Fam hx: No family history of sudden cardiac , MN, or DVT/PE to his knowledge Principal Diagnosis Myocarditis Discharge Exam Patient awake alert appropriate. No positional chest pain no murmurs rubs or gallops No peripheral edema Discharge Data Allergies Allergy/AdvReac Type Severity Reaction Status Date / Time No Known Allergies Allergy Verified 10/22/22 01:27 Consultations 04/23/23 14:28 Consult Cardiology Stat ED Decision to Admit Stat Hospital Course (1) Chest pain: acute symptomatic myocarditis, normal echo started on colchicine, symptom improvement EKG on arrival showed NSR ASA & Toradol were given in the ED Troponin positive up to 10,000 downtrending to 7000 Echo without RWMA D-dimer WNL, Lyme negative, BioFire negative After conferring with cardiology the patient be discharged on colchicine 0.6 twice daily for 14 days with follow-up with cardiology within that timeframe for likely outpatient repeat echocardiogram. Parents were met and informed at the bedside of his diagnosis prognosis and treatment plan. 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 Total Time Total Time Spent Total Time Spent (In Minutes): Discharge 30 including 3 visits to the patient discussion with cardiology [id number] and discussion with parents at the bedside Discharge Plan Discharge Items Patient Disposition: Home - Self-Care Reason For Visit: CHEST PAIN Discharge Diagnosis: myocarditis Activity: Per Instructions section Activity Comment: no intentional exercise until released by cardiology Non-emergency contact: Primary Care Provider and Product Safety Specialist Call non-emergency contact if: your symptoms worsen Follow-up/Referrals: Malik Merlos MD [Physician] - [facility] [Primary Care Provider] - Diet: Regular Addtl Attending Provider Instructions: Myocarditis is inflammation of the heart muscle. It may happen after a viral infection , strep throat, or tuberculosis. It may also be caused by a reaction to a medicine or toxin. Some autoimmune diseases cause it too. Rarely, it occurs in older teens and young adults after they get certain vaccines. Treatment depends on how severe the illness is. Lifestyle changes, such as getting more rest, may be part of the treatment. Follow-up care is a aguiar part of your treatment and safety. Be sure to make and go to all appointments, and call your doctor if you are having problems. It's also a good idea to know your test results and keep a list of the medicines you take. How can you care for yourself at home? * Be safe with medicines. Take your medicines exactly as prescribed. Call your doctor if you think you are having a problem with your medicine. Do not play sports or do tiring exercise until your doctor says it's okay.. Rest when you feel tired. * Have a heart-healthy lifestyle. * Eat heart-healthy foods. This includes vegetables, fruits, nuts, beans, lean meat, fish, and whole grains. Limit sodium, alcohol, and sugar. * Do not smoke or allow others to smoke around you. If you need help quitting, talk to your doctor about stop-smoking programs and medicines. These can increase your chances of quitting for good. * Stay at a healthy weight. Lose weight if you need to. * Manage other health problems such as diabetes, high blood pressure, and high cholesterol. * If you think you may have a problem with alcohol or drug use, talk to your doctor. * Keep track of your weight daily, if you have changes in weight of 3 pound increase in a day or 5 pounds in a week call your doctor * When should you call for help? [id number] you think you may need emergency care. For example, call if: * You passed out (lost consciousness). * You have severe trouble breathing. * You have chest pain. * You cough up pink, foamy mucus. Call your doctor nowor seek immediate medical care if: * You have new or changed symptoms of heart failure, such as: * New or increased shortness of breath. * New or worse swelling in your legs, ankles, or feet. * Sudden weight gain, such as more than 2 to 3 pounds in a day or 5 pounds in a week. (Your doctor may suggest a different range of weight gain.) * Feeling dizzy or lightheaded or like you may faint. * Feeling so tired or weak that you cannot do your usual activities. * You have a fast or irregular heartbeat. Watch closely for changes in your health, and be sure to contact your doctor if you have any problems. Addtl Full Time Babysitter Provider Instructions: Please make follow up appointments with [facility] and Dr Merlos Pending Studies at Discharge: No Stand-Alone Forms: [facility], Smoking Cessation Medications and DC Order Prescriptions: New colchicine (gout) [Colcrys] 0.6 mg Tablet 0.6 mg PO BID Qty: 30 0RF No Action No Known Home Medications Discharge Orders: Discharge Order (Routine); Ordered 04/24/23 Ordered By: Adrien Bowers/Other Patient Handouts: Pericarditis Admission Data Admit Date/Time: 04/23/23 15:40 Attending Provider: Adrien Shankar Admit Provider: Uzair Christiansen Primary Care Provider: [facility] Other Providers: Malik Merlos ; Uzair Christiansen Coding Level of Care Code 07208 INP/OBS DISCH >30 MIN Diagnoses Chest pain R07.9
== END 2023-04-24 16:29 | disposition home or self-care (01) | DRG 316 ==
LOC: ED 12:31 → SUATTDRO 15:40 → EDINP 15:40 → 4W 22:30
DX: I40.9 Acute myocarditis, unspecified; I10 Essential (primary) hypertension